=== PATIENT | male | born 1990 | race Caucasian/White ===

== ENCOUNTER 2021-11-14 13:33 | Outpatient (CLI) | payer SELFPAY | END 2021-11-14 13:34 | disposition home or self-care (01) | PROVIDERS: Visit Provider Family Medicine | DX: R07.89 Other chest pain (principal) | CPT/HCPCS: A0425; A0427 ==

== ENCOUNTER 2021-11-14 14:06 | Emergency (ER) | payer SELFPAY ==
[2021-11-14 14:13] VITALS: BP 120/63; PULSE 109; RESP 18; TEMP 36.2; O2SAT 96; BMI 37.3
[2021-11-14 14:30] VITALS: BP 109/58; PULSE 106; RESP 18; O2SAT 94
--- NOTE | 2021-11-14 14:47 | ED_ITS ---
HPI - General Adult General Chief complaint: Chest Pain Stated complaint: Chest Pain Source: patient Mode of arrival: EMS Limitations: no limitations History of Present Illness HPI narrative: 31-year-old male coming in today complaining of chest pain that last for about an hour but now is gone after presenting to the ER. He states that he was driving after having lunch and having a Red Bull when he got right-sided anterior chest pain. The pain slowly intensified to the point that he became very lightheaded. He denies feeling short of breath. He denies any recent illness, cough. States that he had a cough that lasted 2 months, on and off, but that resolved completely about 3 months ago. He denies feeling nauseated. He was feeling sweaty when this occurred. He denies any vomiting. He states that about a month ago this happened. It also occurred right after lunch. However at that time the pain lasted about 5 minutes. 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 He does not smoke. He believes that his grandfather had a heart attack but is unclear of the details. He denies any drug use including cocaine heroin or marijuana. He denies vaping. When the pain was present nothing seemed to make it better or worse and it did not radiate. Patient takes no medications. Related Data Allergies Allergy/AdvReac Type Severity Reaction Status Date / Time No Known Drug Allergies Allergy Verified 11/14/21 14:12 Review of Systems Status of ROS: Reports: 10 or more systems reviewed and unremarkable except as noted in History and below [facility] Social History Smoking Status: Never smoker Do you use any of these nicotine containing products: None Second hand tobacco smoke exposure: Yes How often do you have a drink containing alcohol: never How often do you have six or more drinks on one occasion: Never AUDIT-C Alcohol total score: 0 Non-prescribed substance use: denies use service: No Exam Narrative: Exam Narrative: Overweight, well-developed patient in no acute distress. Alert and oriented. Answers questions appropriately. Mood and affect are appropriate. Thoughts are goal oriented and rational. No tangential or magical thinking noted. Patient speaks in full sentences without needing to catch his breath. Speech is not slurred or pressured. HEENT: Normocephalic atraumatic. Pupils are equally round reactive to light. Extraocular muscles are intact. Conjunctivae are moist without any icterus noted. Moist mucous membranes. Posterior pharynx is normal. Neck is soft without any lymphadenopathy or thyromegaly. No masses are appreciated. Cardiovascular: Heart is regular rate and rhythm S1 and S2 are present without any murmurs. Lungs: Clear to auscultation bilaterally no wheezes rhonchi or rales are appreciated. Patient takes deep breaths without any discomfort. Abdomen: Soft and nontender nondistended with normal bowel sounds. No guarding or rebound. No masses or organomegaly appreciated. Extremities: Bilateral lower extremities are without edema. Normal DP and PT pulses. Skin: Well perfused without any obvious rashes. Const: Vital Signs, click to edit/add: Vital Signs - 24 hr 11/14/21 14:13 11/14/21 15:07 11/14/21 15:00 Temperature 97.2 F L Pulse Rate [Apical ] 109 H 98 Respiratory Rate 18 17 Blood Pressure [Le ft Upper Arm] 120/63 107/63 Pulse Oximetry 96 94 98 Oxygen Delivery Me thod Room Air Room Air 11/14/21 14:30 Temperature Pulse Rate [Apical ] 106 H Respiratory Rate 18 Blood Pressure [Le ft Upper Arm] 109/58 L Pulse Oximetry 94 Oxygen Delivery Me thod Room Air Course Course Hospital Course: His workup including serial troponins and repeat EKG were unremarkable. I did discuss his lab results with him and patient do that he believes he may have had a panic attack. He states that they had a conversation about strokes at his work yesterday and he was thinking he might be having a stroke today which made him very anxious and made his chest pain worse. He states this is not the 1st time that he has had anxiety. Of note, initial EKG showed normal sinus rhythm with a pulse of 105, repeat EKG showed normal sinus rhythm with a pulse of 87. Vital Signs Vital signs: Initial Vital Signs Temperature 97.2 F L 11/14/21 14:13 Temperature Source Temporal Artery Scan 11/14/21 14:13 Pulse Rate 109 H 11/14/21 14:13 Pulse Rhythm 11/14/21 14:13 Respiratory Rate 18 11/14/21 14:13 Blood Pressure 120/63 11/14/21 14:13 Blood Pressure Mean 82 11/14/21 14:13 Blood Pressure Position Supine 11/14/21 14:13 Pulse Oximetry 96 11/14/21 14:13 Oxygen Delivery Method 11/14/21 14:13 Vital Signs Temperature 97.2 F L 11/14/21 14:13 Pulse Rate 109 H 11/14/21 14:13 Respiratory Rate 18 11/14/21 14:13 Blood Pressure 120/63 11/14/21 14:13 Pulse Oximetry 96 11/14/21 14:13 Oxygen Delivery Method 11/14/21 14:13 Temperature 97.2 F L 11/14/21 14:13 Pulse Rate 98 11/14/21 15:00 Respiratory Rate 17 11/14/21 15:00 Blood Pressure 107/63 11/14/21 15:00 Pulse Oximetry 94 11/14/21 15:07 Oxygen Delivery Method 11/14/21 15:00 Medical Decision Making MDM Narrative Medical decision making narrative: Right-sided chest wall pain. We discussed potential causes including anxiety, muscular strain or spasm, GERD. Recommend he follow up with primary care provider to discuss his symptoms. Patient was agreeable had no other questions Lab Data Lab results reviewed: Yes I reviewed the patient's lab results Labs: Lab Results 11/14/21 11/14/21 11/14/21 Range/Units 14:38 14:39 14:45 WBC 7.19 (4.50-11.00) K/uL RBC 5.13 (4.30-5.90) m/uL Hgb 14.1 (13.5-17.5) gm/dL Hct 41.5 (37.0-53.0) % MCV 81 (80-100) fL MCH 28 (26-34) pg MCHC 34 (32-36) gm/dL RDW Coeff of Gregg 13.4 (11.5-15.5) % Plt Count 244 (140-440) K/uL Neut % (Auto) 65.3 (42.0-72.0) % Lymph % (Auto) 23.6 (20-44) % [place] % (Auto) 9.3 (0.0-11.0) % Eos % (Auto) 1.1 (0.0-7.0) % Baso % (Auto) 0.1 (0.0-3.0) % Neut # (Auto) 4.69 (1.7-7.0) K/uL Lymph # (Auto) 1.70 (0.90-2.90) K/uL [place] # (Auto) 0.70 (0.00-0.90) K/UL Eos # (Auto) 0.08 (0.00-0.50) K/uL Baso # (Auto) 0.01 (0.00-0.30) K/uL Abs Immat Gran (auto) 0.04 (0.00-0.30) K/uL D-Dimer Quant (PE/DVT) (0.00-0.50) ug/ml Sodium (135-149) mmol/L Potassium (3.6-5.1) mmol/L Chloride (96-114) mmol/L Carbon Dioxide (20-32) mmol/L BUN (5-24) mg/dL Creatinine (0.5-1.5) mg/dL Estimated Creat Clear Estimated GFR ml/min Glucose (60-115) mg/dL Lactate 1.4 (0.5-1.9) mmol/L Calcium (8.4-10.6) mg/dL Total Bilirubin (0.1-1.5) mg/dL Direct Bilirubin (0.0-0.5) mg/dL AST (12-35) U/L ALT (4-50) U/L Alkaline Phosphatase (40-150) U/L C-Reactive Protein (0.5-1.0) mg/dL Total Protein (6.0-8.3) g/dL Albumin (3.3-5.0) g/dL Lipase (23-300) U/L SARS-CoV-2 (PCR) Negative SARS-CoV-2 (Negative) Influenza Type A (PCR) Negative PCR FLU A (Negative) Influenza Type B (PCR) Negative PCR FLU B (Negative) POC Troponin I (0.01-0.04) ng/ml 11/14/21 11/14/21 11/14/21 Range/Units 14:45 14:45 14:45 WBC (4.50-11.00) K/uL RBC (4.30-5.90) m/uL Hgb (13.5-17.5) gm/dL Hct (37.0-53.0) % MCV (80-100) fL MCH (26-34) pg MCHC (32-36) gm/dL RDW Coeff of Gregg (11.5-15.5) % Plt Count (140-440) K/uL Neut % (Auto) (42.0-72.0) % Lymph % (Auto) (20-44) % [place] % (Auto) (0.0-11.0) % Eos % (Auto) (0.0-7.0) % Baso % (Auto) (0.0-3.0) % Neut # (Auto) (1.7-7.0) K/uL Lymph # (Auto) (0.90-2.90) K/uL [place] # (Auto) (0.00-0.90) K/UL Eos # (Auto) (0.00-0.50) K/uL Baso # (Auto) (0.00-0.30) K/uL Abs Immat Gran (auto) (0.00-0.30) K/uL D-Dimer Quant (PE/DVT) < 0.27 (0.00-0.50) ug/ml Sodium 138 (135-149) mmol/L Potassium 3.9 (3.6-5.1) mmol/L Chloride 106 (96-114) mmol/L Carbon Dioxide 23 (20-32) mmol/L BUN 15 (5-24) mg/dL Creatinine 0.9 (0.5-1.5) mg/dL Estimated Creat Clear 122.79 Estimated GFR 117 ml/min Glucose 133 H (60-115) mg/dL Lactate (0.5-1.9) mmol/L Calcium 8.3 L (8.4-10.6) mg/dL Total Bilirubin 0.4 (0.1-1.5) mg/dL Direct Bilirubin 0.4 (0.0-0.5) mg/dL AST 36 H (12-35) U/L ALT 32 (4-50) U/L Alkaline Phosphatase 106 (40-150) U/L C-Reactive Protein 1.5 H (0.5-1.0) mg/dL Total Protein 7.5 (6.0-8.3) g/dL Albumin 4.2 (3.3-5.0) g/dL Lipase 42 (23-300) U/L SARS-CoV-2 (PCR) (Negative) Influenza Type A (PCR) (Negative) Influenza Type B (PCR) (Negative) POC Troponin I (0.01-0.04) ng/ml 11/14/21 11/14/21 Range/Units 14:45 16:30 WBC (4.50-11.00) K/uL RBC (4.30-5.90) m/uL Hgb (13.5-17.5) gm/dL Hct (37.0-53.0) % MCV (80-100) fL MCH (26-34) pg MCHC (32-36) gm/dL RDW Coeff of Gregg (11.5-15.5) % Plt Count (140-440) K/uL Neut % (Auto) (42.0-72.0) % Lymph % (Auto) (20-44) % [place] % (Auto) (0.0-11.0) % Eos % (Auto) (0.0-7.0) % Baso % (Auto) (0.0-3.0) % Neut # (Auto) (1.7-7.0) K/uL Lymph # (Auto) (0.90-2.90) K/uL [place] # (Auto) (0.00-0.90) K/UL Eos # (Auto) (0.00-0.50) K/uL Baso # (Auto) (0.00-0.30) K/uL Abs Immat Gran (auto) (0.00-0.30) K/uL D-Dimer Quant (PE/DVT) (0.00-0.50) ug/ml Sodium (135-149) mmol/L Potassium (3.6-5.1) mmol/L Chloride (96-114) mmol/L Carbon Dioxide (20-32) mmol/L BUN (5-24) mg/dL Creatinine (0.5-1.5) mg/dL Estimated Creat Clear Estimated GFR ml/min Glucose (60-115) mg/dL Lactate (0.5-1.9) mmol/L Calcium (8.4-10.6) mg/dL Total Bilirubin (0.1-1.5) mg/dL Direct Bilirubin (0.0-0.5) mg/dL AST (12-35) U/L ALT (4-50) U/L Alkaline Phosphatase (40-150) U/L C-Reactive Protein (0.5-1.0) mg/dL Total Protein (6.0-8.3) g/dL Albumin (3.3-5.0) g/dL Lipase (23-300) U/L SARS-CoV-2 (PCR) (Negative) Influenza Type A (PCR) (Negative) Influenza Type B (PCR) (Negative) POC Troponin I 0.00 L 0.00 L (0.01-0.04) ng/ml Imaging Data Chest x-ray: Attestation: I have reviewed the pertinent imaging results. My impression: Normal ECG Data Attestation: I personally reviewed and interpreted this ECG as follows: (Normal sinus rhythm, heart rate 87) Discharge Plan Discharge Clinical Impression: Acute chest wall pain Patient Disposition: Home, Self-Care Condition: Improved Additional Instructions: Recommend you follow-up with your primary care provider to discuss potential anxiety versus reflux causing your discomfort. It also would not be a bad idea given that your pain came after you ate, to have your gallbladder checked. Follow Up/Referrals: Provider,Not a Local [Primary Care Provider] - Stand Alone Forms: [employer] Info Instructions
[2021-11-14 14:53] LABS: Lactate* 1.4 mmol/L (0.5-1.9)
[2021-11-14 15:00] VITALS: BP 107/63; PULSE 98; RESP 17; O2SAT 98
[2021-11-14 15:06] LABS: Basophils Absolute Auto 0.01 K/uL (0.00-0.30); Basophils Percent Auto 0.1 % (0.0-3.0); Eosinophils Absolute Auto 0.08 K/uL (0.00-0.50); Eosinophils Percent Auto 1.1 % (0.0-7.0); Hematocrit 41.5 % (37.0-53.0); Hemoglobin* 14.1 gm/dL (13.5-17.5); Immature Granulocytes Abs Auto 0.04 K/uL (0.00-0.30); Lymphocytes Percent Auto 23.6 % (20-44); Mean Corpuscular HGB Conc 34 gm/dL (32-36); Mean Corpuscular Hemoglobin 28 pg (26-34); Mean Corpuscular Volume 81 fL (80-100); Monocytes Percent Auto 9.3 % (0.0-11.0); Neutrophils Absolute Auto 4.69 K/uL (1.7-7.0); Neutrophils Percent Auto 65.3 % (42.0-72.0); Platelet Count* 244 K/uL (140-440); RDW Coefficient of Variation % 13.4 % (11.5-15.5); Red Blood Count 5.13 m/uL (4.30-5.90); White Blood Count* 7.19 K/uL (4.50-11.00)
[2021-11-14 15:07] VITALS: O2SAT 94
[2021-11-14 15:14] LABS: Albumin* 4.2 g/dL (3.3-5.0)
[2021-11-14 15:15] LABS: Chloride* 106 mmol/L (96-114); Potassium* 3.9 mmol/L (3.6-5.1); Sodium* 138 mmol/L (135-149)
[2021-11-14 15:17] LABS: Alkaline Phosphatase* 106 U/L (40-150); Aspartate Amino Transferase* 36 U/L (12-35); Bilirubin Direct* 0.4 mg/dL (0.0-0.5); Bilirubin Total* 0.4 mg/dL (0.1-1.5); Total Protein* 7.5 g/dL (6.0-8.3)
[2021-11-14 15:18] LABS: Alanine Aminotransferase* 32 U/L (4-50); Creatinine* 0.9 mg/dL (0.5-1.5); Est. Creatinine Clearance* 122.79; Estimated Glomerular Filt Rate 117 ml/min; Lipase* 42 U/L (23-300)
[2021-11-14 15:19] LABS: Blood Urea Nitrogen* 15 mg/dL (5-24); Calcium* 8.3 mg/dL (8.4-10.6); Carbon Dioxide* 23 mmol/L (20-32); Glucose* 133 mg/dL (60-115)
[2021-11-14 15:22] LABS: C Reactive Protein* 1.5 mg/dL (0.5-1.0)
[2021-11-14 15:31] LABS: D Dimer Quantitative* < 0.27 ug/ml (0.00-0.50); Slide Review Reflex No
[2021-11-14 15:39] LABS: PCR FLU A Negative PCR FLU A (Negative); PCR FLU B Negative PCR FLU B (Negative)
--- NOTE | 2021-11-14 16:02 | CRLHL7_ITS ---
For Patients: As a result of the Cures Act, medical imaging exams and procedure reports are released immediately into your electronic medical record. You may view this report before your referring provider. If you have questions, please contact your health care provider. INDICATION: Shortness of breath. TECHNIQUE: Chest 2 views. COMPARISON: None. FINDINGS: Lungs: Clear lungs. No consolidation. Pleura: No pleural effusion or pneumothorax. Heart and Mediastinum: The cardiomediastinal silhouette is normal. The vessels are unremarkable. Bones: Unremarkable. IMPRESSION: No acute cardiopulmonary disease. Dictated by Billy Jaramillo MD @ 11/14/2021 5:05:36 PM (Electronically Signed)
[2021-11-14 16:21] LABS: SARS PCR* Negative SARS-CoV-2 (Negative)
[2021-11-14 16:30] VITALS: BP 109/57; PULSE 95; RESP 18; O2SAT 97
== END 2021-11-14 17:09 | disposition home or self-care (01) ==
PROVIDERS: Emergency Provider Family Medicine
DX: R07.89 Other chest pain (principal)
CPT/HCPCS: 36415; 71046; 80048; 80076; 83605; 83690; 84484; 85025; 85379; 86140; 87631; 93005; 94761; 99284; 99285

== ENCOUNTER 2022-03-28 09:36 | Emergency (ER) | payer BC, SELFPAY ==
[2022-03-28 09:52] VITALS: BP 133/85; PULSE 84; RESP 16; TEMP 36.8; O2SAT 96; BMI 35.9
[2022-03-28 12:23] VITALS: BP 125/86; PULSE 83; O2SAT 96
--- NOTE | 2022-03-28 14:35 | ED.NURSE ---
Pt brought back and placed in Room 4.
--- NOTE | 2022-03-28 14:54 | ED.DIZZY ---
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 He denies any chest pain associated with this any shortness of breath, nausea vomiting and feels a lot better now that he has had time for it to go away. He is able to walk around without falling, he never felt like he was unstable, denies any numbness tingling weakness headaches, fevers chills or sweats coughing or other symptoms. Has been seen in the past for panic attacks in the emergency room, but has never followed up with primary care. Denies any hearing issues your chandrika, MD elicited complaint: dizziness Onset (ago): minute(s) Timing: awoke with symptoms Severity: mild Description: sense of movement and lightheadedness History of similar symptoms: Yes Exacerbating factors: change in body position Relieving factors: remaining still and keeping eyes open Associated symptoms: denies other symptoms Stroke scale total: 0 Related Data Allergies Allergy/AdvReac Type Severity Reaction Status Date / Time No Known Drug Allergies Allergy Verified 03/28/22 09:59 Review of Systems Status of ROS: Reports: 10 or more systems reviewed and unremarkable except as noted in History and below [facility] Social History Smoking Status: Never smoker Do you use any of these nicotine containing products: None Second hand tobacco smoke exposure: Yes How often do you have a drink containing alcohol: never How often do you have six or more drinks on one occasion: Never AUDIT-C Alcohol total score: 0 Non-prescribed substance use: denies use service: No Exam Narrative: Exam Narrative: Patient is speaking normally, problem with no slurring words, oriented x3. Head eyes ears nose and throat exam show equal pupils, no scleral icterus, extraocular muscles are normal, no facial droop, speech is normal, trachea normal and midline. Thyroid normal midline palpable not enlarged. Chest shows symmetrical rise bilaterally, normal auscultation with no wheezes, no increased work of breathing, no overt bruising or lesions seen, no tenderness is noted on auscultation. Heart sounds normal with no S3-S4 no murmurs clicks or gallops. Abdomen shows no obvious masses or hepatosplenomegaly, no organomegaly, bowel sounds are normal in all quadrants. No tenderness is noted also in all quadrants. Upper and lower extremities show normal power, normal range of motion, pulses are normal, sensations normal, fine motor movements are normal, pelvis is stable to rocking. Cervical spine shows normal range of motion, and palpably not tender. Thoracic spine shows normal range of motion, and palpably not tender, lumbar spine shows no tenderness to palpation percussion and is otherwise normal range of motion. Skin shows no rashes, petechiae or eccymosis. Able to walk tandem walking for me in the room was normal, there is no stepping out, he did not have any nystagmus on testing. Const: Vital Signs, click to edit/add: Vital Signs - 24 hr 03/28/22 09:52 03/28/22 12:23 Temperature 98.3 F Pulse Rate [Pulse Oximeter] 84 83 Respiratory Rate 16 Blood Pressure [Ri ght Upper Arm] 133/85 125/86 Pulse Oximetry 96 96 Oxygen Delivery Me thod Room Air Room Air Documenting provider has reviewed patient's vital signs: yes Course Course Hospital Course: I discussed with the patient that he likely does have a little bit of benign positional vertigo, but I do not think more majority of his issues related to anxiety, follow-up with primary care suggested, I would be happy to write him a note for today as he is under increased stress with work, does not have any other risk factors such as suicidal homicidal ideation, alcohol or drug issues. Was agreeable to the above plan, Vital Signs Vital signs: Initial Vital Signs Temperature 98.3 F 03/28/22 09:52 Temperature Source Axillary 03/28/22 09:52 Pulse Rate 84 03/28/22 09:52 Pulse Rhythm 03/28/22 09:52 Respiratory Rate 16 03/28/22 09:52 Blood Pressure 133/85 03/28/22 09:52 Blood Pressure Mean 101 03/28/22 09:52 Blood Pressure Position Sitting 03/28/22 09:52 Pulse Oximetry 96 03/28/22 09:52 Oxygen Delivery Method 03/28/22 09:52 Vital Signs Temperature 98.3 F 03/28/22 09:52 Pulse Rate 84 03/28/22 09:52 Respiratory Rate 16 03/28/22 09:52 Blood Pressure 133/85 03/28/22 09:52 Pulse Oximetry 96 03/28/22 09:52 Oxygen Delivery Method 03/28/22 09:52 Temperature 98.3 F 03/28/22 09:52 Pulse Rate 83 03/28/22 12:23 Respiratory Rate 16 03/28/22 09:52 Blood Pressure 125/86 03/28/22 12:23 Pulse Oximetry 96 03/28/22 12:23 Oxygen Delivery Method 03/28/22 12:23 MDM - Dizziness MDM Narrative Medical decision making narrative: Life-threatening differential diagnosis considered include, CVA, other differential diagnosis include BPPV, labyrinthitis, Meniere's disease, vestibular neuronitis, migraine, multiple sclerosis, otitis media, viral syndrome as well as other etiologies Medical Records Attestation: I reviewed the patient's medical records. Lab Data Attestation: I reviewed the patient's lab results. Discharge Plan Discharge Clinical Impression: Benign paroxysmal positional vertigo, Anxiety Patient Disposition: Home, Self-Care Condition: Stable Instructions: Generalized Anxiety Disorder (ED), Benign Paroxysmal Positional Vertigo (ED), Anxiety (ED) Additional Instructions: I would suggest that you follow-up with primary care, I have referred you 1 of the physicians listed here. In you can talk to them about the anxiety, I do believe that she do have some dizziness from time to time, this is pretty normal for some people, I think a decrease in overall in your stress would help also. Benadryl 25-50 mg to 3 times a day will help the sensation of dizziness, and also help your anxiety. This is [id number]. Only side effect is becoming tired Follow Up/Referrals: Martir Interiano MD [Staff Physician] - Provider,Not a Local [Primary Care Provider] - Stand Alone Forms: [employer] Info Instructions
--- NOTE | 2022-03-28 14:55 | ED.NURSE ---
Pt left room after speaking with MD and went out to lobby.
--- NOTE | 2022-03-28 15:11 | ED.NURSE ---
DC instructions provided to pt in the lobby.
== END 2022-03-28 15:12 | disposition home or self-care (01) ==
LOC: ED 14:58
PROVIDERS: Emergency Provider Family Medicine
DX: H81.10 Benign paroxysmal vertigo, unspecified ear (principal); F41.9 Anxiety disorder, unspecified
CPT/HCPCS: 99283